=== PATIENT | male | born 1980 | race Caucasian/White ===

== ENCOUNTER 2025-01-13 14:15 | Outpatient (AMB) | payer SELFPAY ==
--- NOTE | 2025-01-13 14:17 | MHC.OFFWIV ---
Intake Vital Signs 01/13/25 14:18 Height 5 ft 5 in Weight 162 lb BMI 27.0 BP 122/84 Blood Pressure Location Lt brachial Position Sitting Pulse 105 H Pulse Source Pulse Oximeter Temp 98.4 F Temp Source Oral Pulse Oximetry (%) 97 Oxygen Delivery Method Room Air Intake Visit Reasons: EP - Panic Attacks (asymptomatic currently) Intake Note: Patient presents with c/o panic attack symptoms for the last couple months Allergies No Known Allergies Allergy (Verified 01/13/25 14:21) Medication List - Last Reconciled 01/13/25 by Mindi Anguiano NP hydroxyzine HCl 25 mg PO TID PRN trazodone 50 mg PO BEDTIME Do you need a note to return to daycare/school/sports/work: Yes HPI HPI Comments History of Present Illness Details 44 y/o Male Patient who presents to the walk in clinic with c/o Anxiety associated with Panic Attacks for couple of months. States having these episodes of Shaking, Rapid heartbeat, Chest tightness, Shortness of breath, Sweating, body chills, lightheadedness, Tingling, numbness in hands and Hot flashes. Reports that episodes are intermittent and lasting few minutes. Denies SA or SI. Denies h/o Mental health. He does admit to having stressors in life; his mother newly diagnosed with Dementia and lost 2 family members last year. He lost his grand-parents from suicide many years ago. Denies any h/o Substance abuse. He does drink 3-4 Beers everynight and smokes Marijuana for sleep. Reports insomnia; difficulty with falling and staying asleep due to racing thoughts. [facility] Medical History (Updated 01/13/25 @ 15:23 by Mindi Anguiano NP) Insomnia Generalized anxiety disorder with panic attacks Review of Systems Const All systems reviewed & are unremarkable except as noted in HPI and below Physical Exam Vital Signs: Last Vital Signs Temp 98.4 F 01/13/25 14:18 Pulse 105 H 01/13/25 14:18 BP 122/84 01/13/25 14:18 Pulse Ox 97 01/13/25 14:18 Oxygen Delivery Method Room Air 01/13/25 14:18 BMI result Body Mass Index 27.0 Const General: no acute distress Nutritional Appearance: well nourished Orientation/consciousness: patient oriented x3 Resp Effort & Inspection: normal respiratory effort Cardio Rhythm: regular rhythm Neuro General: patient oriented x3, gait normal and moves all extremities Psych Appearance: grossly normal Speech and movement: Normal speech and movement present Attitude: cooperative Thought process: Normal thought process present Thought content: suicidality and no homicidality Insight: Good insight present (Psych) Judgement: Good judgement present (Psych) Assessment & Plan Assessment & Plan (1) Generalized anxiety disorder with panic attacks: Code(s): F41.1 - Generalized anxiety disorder; F41.0 - Panic disorder [episodic paroxysmal anxiety] Plan: Breathing and relaxation techniques Regular exercise. Healthy sleep. Limit caffeine, nicotine, and alcohol. Balanced diet. (2) Insomnia: Code(s): G47.00 - Insomnia, unspecified Qualifiers: Insomnia type: unspecified Qualified Code(s): G47.00 - Insomnia, unspecified Plan: Go to bed and wake up at the same time every day, even on weekends. Keep your room dark, quiet, and cool. Started him on Trazodone and Hydroxyzine. Medications: New trazodone 50 mg PO BEDTIME 90 tabs 0RF G47.00 - Insomnia, unspecified hydroxyzine HCl 25 mg PO TID PRN 90 tabs 1RF anxiety F41.0 - Panic disorder [episodic paroxysmal anxiety], F41.1 - Generalized anxiety disorder Coding Level of Care Code New Pt Level 4 (03604) Diagnoses Generalized anxiety disorder with panic attacks F41.1; F41.0 Insomnia, unspecified type G47.00 Insomnia type: unspecified Time Spent (min) 20
[2025-01-13 14:18] VITALS: BP 122/84; PULSE 105; TEMP 36.9; O2SAT 97; BMI 27.0
== END 2025-01-13 15:29 | disposition home or self-care (01) ==
PROVIDERS: PCP Nurse Practitioner Family; Visit Provider Nurse Practitioner Family
DX: F41.1 Generalized anxiety disorder (principal); F41.0 Panic disorder [episodic paroxysmal anxiety]; G47.00 Insomnia, unspecified

== ENCOUNTER → 2025-01-13 14:15 | Outpatient (BNVA) | payer SELFPAY | PROVIDERS: PCP Nurse Practitioner Family; Visit Provider Nurse Practitioner Family | DX: F41.0 Panic disorder [episodic paroxysmal anxiety] (principal); F41.1 Generalized anxiety disorder; G47.00 Insomnia, unspecified | CPT/HCPCS: 99202 ==